=== PATIENT | male | born 1960 | race Caucasian/White ===

== ENCOUNTER 2022-04-08 11:28 | Emergency (ER) | payer OTHER ==
--- NOTE | 2022-04-08 11:35 | ERPHSYRPT ---
- History of Present Illness Time Seen by Provider: 04/08/22 11:34 Historian: patient Exam Limitations: no limitations Physician History: This is a 62-year-old white male who has a history of arthritis in both his shoulders and has had in the last couple years, intermittent chest wall discomfort which she was told was due to arthritis. In the last couple weeks he has had intermittent worsening of substernal, central chest pressure that radiates into his back. He felt this was due to worsening arthritis but in the last couple weeks and more so today he felt as though he was going to pass out and there was associated numbness in his fingers and around his mouth. He has never been diagnosed with a cardiac issue or coronary artery disease. He has never had a stroke in the past. He is not short of breath. He has no abdominal pain. He has no nausea vomiting or diarrhea symptoms. Timing/Duration: week(s) (Present for the last couple weeks), worse Activities at Onset: none Quality: pressure Location: substernal, central Chest Pain Radiation: back Severity of Pain-Max: mild Severity of Pain-Current: mild Modifying Factors: Improves With: nothing Associated Symptoms: other ([place] lightheaded as if he was going to pass out but did not pass out) Prior Chest Pain/Cardiac Workup: no prior chest pain, no prior cardiac workup Nitro Today/Relief: no nitro taken today Aspirin Treatment Today: no aspirin today Allergies/Adverse Reactions: acetaminophen [From Darvocet-N] Allergy (Verified 04/08/22 11:31) bee venom protein (honey bee) Allergy (Verified 04/08/22 11:31) propoxyphene [From Darvon] Allergy (Verified 04/08/22 11:31) Travel Risk - International Travel Have you traveled outside of the country in past 3 weeks: No - Coronavirus Screening Are you exhibiting any of the following symptoms?: No Close contact with a COVID-19 positive Pt in past 14-21 Days: No - Review of Systems Constitutional: No Symptoms Eyes: No Symptoms Ears, Nose, & Throat: No Symptoms Respiratory: No Symptoms Cardiac: Chest Pain (Described as a pressure radiating into his back) Abdominal/Gastrointestinal: No Symptoms Genitourinary Symptoms: No Symptoms Musculoskeletal: No Symptoms Skin: No Symptoms Neurological: Parasthesia (Around his mouth and fingertips), Other (Lightheaded) Psychological: Anxiety Endocrine: No Symptoms Hematologic/Lymphatic: No Symptoms Immunological/Allergic: No Symptoms All Other Systems: Reviewed and Negative - Past Medical History Pertinent Past Medical History: Yes - Past Surgical History Past Surgical History: Yes - Nursing Vital Signs Nursing Vital Signs: Initial Vital Signs Temperature 97.2 F 04/08/22 11:33 Pulse Rate 94 H 04/08/22 11:33 Respiratory Rate 18 04/08/22 11:33 Blood Pressure 164/87 04/08/22 11:33 O2 Sat by Pulse Oximetry 100 04/08/22 11:33 Pain Scale Pain Intensity 4 - Physical Exam General Appearance: no apparent distress, alert, anxiety Eye Exam: PERRL/EOMI, eyes nml inspection Ears, Nose, Throat Exam: normal ENT inspection, moist mucous membranes Neck Exam: normal inspection, non-tender, supple, full range of motion Respiratory Exam: normal breath sounds, lungs clear, airway intact, No chest tenderness, No respiratory distress Cardiovascular Exam: regular rate/rhythm, normal heart sounds, normal peripheral pulses Gastrointestinal/Abdomen Exam: soft, normal bowel sounds, No tenderness Rectal Exam: not done Extremity Exam: normal inspection, normal range of motion, pelvis stable Neurologic Exam: alert, oriented x 3, cooperative, 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 No comparison twelve-lead EKG available) Ordered Tests: Active Orders 24 hr Category Date Time Status EKG-ER Only STAT Care 04/08/22 11:59 Active IV Insertion STAT Care 04/08/22 11:59 Active Pulse Oximetry (ED) STAT Care 04/08/22 11:59 Active CHEST 1 VIEW (PORTABLE) Stat Exams 04/08/22 13:34 Taken HEAD WITHOUT CONTRAST [CT] Stat Exams 04/08/22 12:00 Completed CBC W DIFF Stat Lab 04/08/22 12:45 Completed CMP Stat Lab 04/08/22 12:45 Completed D-DIMER QUANTITATIVE Stat Lab 04/08/22 12:45 Completed NT PRO BNP Stat Lab 04/08/22 12:45 Completed TROPONIN Q4H Lab 04/08/22 12:45 Completed TROPONIN Q4H Lab 04/08/22 16:00 Ordered TROPONIN Q4H Lab 04/08/22 20:00 Ordered Medication Summary Discontinued Medications Generic Name Dose Route Start Last Admin Trade Name Freq PRN Reason Stop Dose Admin Aspirin 324 mg 04/08/22 11:59 04/08/22 12:04 Aspirin 81 Mg Tab.Chew PO 04/08/22 12:00 324 mg STAT ONE Administration Aspirin Confirm 04/08/22 12:04 Aspirin 81 Mg Tab.Chew Administered 04/08/22 12:05 Dose 324 mg .ROUTE .[employer] ONE Lab/Rad Data: Laboratory Result Diagrams 04/08/22 12:45 04/08/22 12:45 Laboratory Results 04/08/22 04/08/22 04/08/22 Range/Units 12:45 12:45 12:45 WBC (4.0-10.5) x10^3/uL RBC (4.1-5.6) x10^6/uL Hgb (12.5-18.0) g/dL Hct (42-50) % MCV (78-100) fL MCH (26-32) pg MCHC (32-36) g/dL RDW (11.5-14.0) % Plt Count (150-450) x10^3/uL MPV (7.5-11.0) fL Gran % (36.0-66.0) % Immature Gran % (Auto) (0.00-0.4) % Nucleat RBC Rel Count (0.00-0.1) % Eos # (Auto) (0-0.5) x10^3/uL Immature Gran # (Auto) (0.00-0.03) x10^3u/L Absolute Lymphs (auto) (1.0-4.6) x10^3/uL Absolute Monos (auto) (0.0-1.3) x10^3/uL Absolute Nucleated RBC (0.00-0.01) x10^3u/L Lymphocytes % (24.0-44.0) % Monocytes % (0.0-12.0) % Eosinophils % (0.00-5.0) % Basophils % (0.0-0.4) % Absolute Granulocytes (1.4-6.9) x10^3/uL Basophils # (0-0.4) x10^3/uL D-Dimer < 0.19 (0.0-0.50) mg/L Sodium 139 (137-145) mmol/L Potassium 4.3 (3.5-5.1) mmol/L Chloride 104 (98-107) mmol/L Carbon Dioxide 28 (22-30) mmol/L Anion Gap 11.4 (5-15) MEQ/L BUN 11 (9-20) mg/dL Creatinine 0.86 (0.66-1.25) mg/dL Estimated GFR > 60.0 ML/MIN Glucose 109 H (74-106) mg/dL Calcium 9.0 (8.4-10.2) mg/dL Total Bilirubin 0.60 (0.2-1.3) mg/dL AST 23 (17-59) U/L ALT 25 (0-50) U/L Alkaline Phosphatase 71 (38-126) U/L Troponin I < 0.012 (0.000-0.034) ng/mL NT-Pro-B Natriuret Pep 36.9 (0-900) pg/mL Serum Total Protein 6.9 (6.3-8.2) g/dL Albumin 4.4 (3.5-5.0) g/dL 04/08/22 Range/Units 12:45 WBC 7.9 (4.0-10.5) x10^3/uL RBC 4.66 (4.1-5.6) x10^6/uL Hgb 13.9 (12.5-18.0) g/dL Hct 42.5 (42-50) % MCV 91.2 (78-100) fL MCH 29.8 (26-32) pg MCHC 32.7 (32-36) g/dL RDW 12.4 (11.5-14.0) % Plt Count 256 (150-450) x10^3/uL MPV 9.0 (7.5-11.0) fL Gran % 63.8 (36.0-66.0) % Immature Gran % (Auto) 0.5 H (0.00-0.4) % Nucleat RBC Rel Count 0.0 (0.00-0.1) % Eos # (Auto) 0.20 (0-0.5) x10^3/uL Immature Gran # (Auto) 0.04 H (0.00-0.03) x10^3u/L Absolute Lymphs (auto) 1.82 (1.0-4.6) x10^3/uL Absolute Monos (auto) 0.73 (0.0-1.3) x10^3/uL Absolute Nucleated RBC 0.00 (0.00-0.01) x10^3u/L Lymphocytes % 23.0 L (24.0-44.0) % Monocytes % 9.2 (0.0-12.0) % Eosinophils % 2.5 (0.00-5.0) % Basophils % 1.0 (0.0-0.4) % Absolute Granulocytes 5.06 (1.4-6.9) x10^3/uL Basophils # 0.08 (0-0.4) x10^3/uL D-Dimer (0.0-0.50) mg/L Sodium (137-145) mmol/L Potassium (3.5-5.1) mmol/L Chloride (98-107) mmol/L Carbon Dioxide (22-30) mmol/L Anion Gap (5-15) MEQ/L BUN (9-20) mg/dL Creatinine (0.66-1.25) mg/dL Estimated GFR ML/MIN Glucose (74-106) mg/dL Calcium (8.4-10.2) mg/dL Total Bilirubin (0.2-1.3) mg/dL AST (17-59) U/L ALT (0-50) U/L Alkaline Phosphatase (38-126) U/L Troponin I (0.000-0.034) ng/mL NT-Pro-B Natriuret Pep (0-900) pg/mL Serum Total Protein (6.3-8.2) g/dL Albumin (3.5-5.0) g/dL - Progress Progress: improved, re-examined Air Movement: good Progress Note: 04/08/22 13:52 Chest x-ray shows no acute cardiopulmonary process. Blood Culture(s) Obtained: No Antibiotics given: No Counseled pt/family regarding: lab results, diagnosis, need for follow-up, rad results - Departure Departure Disposition: Home Clinical Impression: Non-cardiac chest pain Condition: Stable Critical Care Time: No Referrals: [facility]OSP[facility],'S [Primary Care Provider] - Follow up/PCP as directed Additional Instructions: Take all your medication as prescribed. Follow-up with your primary care physician and a magnetic prospector by phone later today to make an appointment for further evaluation and management.
[2022-04-08] MEDS ORDERED: BABY ASPIRIN 81 MG CHEW PO ONE (11:59)
[2022-04-08] MEDS ORDERED: BABY ASPIRIN 81 MG CHEW ONE (12:04)
--- NOTE | 2022-04-08 12:29 | XRAY ---
Indication: Dizziness and near syncope. Multiple contiguous axial images obtained through the head without contrast. Comparison: None Normal appearing brain parenchyma, ventricles, and bony calvarium for patient's age. Visualized paranasal sinuses and mastoid air cells are clear. Impression: Normal CT head without contrast exam.
[2022-04-08 12:57] LABS: Absolute Neutrophil Ct (ANC) 5.06 x10^3/uL (1.4-6.9); Basophil (Absolute #) 0.08 x10^3/uL (0-0.4); Eosinophil % 2.5 % (0.00-5.0); Hematocrit 42.5 % (42-50); Hemoglobin 13.9 g/dL (12.5-18.0); Lymphocyte (Absolute #) 1.82 x10^3/uL (1.0-4.6); Mean Cell Volume 91.2 fL (78-100); Mean Corpuscular Hemoglobin 29.8 pg (26-32); Mean Corpuscular Hgb Concent. 32.7 g/dL (32-36); Monocyte (Absolute #) 0.73 x10^3/uL (0.0-1.3); Monocytes % 9.2 % (0.0-12.0); Neutrophil % 63.8 % (36.0-66.0); Platelet Count 256 x10^3/uL (150-450); Red Blood Count 4.66 x10^6/uL (4.1-5.6); Red Cell Distribution Width 12.4 % (11.5-14.0); White Blood Count 7.9 x10^3/uL (4.0-10.5)
[2022-04-08 13:11] LABS: ALBUMIN 4.4 g/dL (3.5-5.0); ALKALINE PHOSPHATASE 71 U/L (38-126); ANION GAP 11.4 MEQ/L (5-15); BLOOD UREA NITROGEN 11 mg/dL (9-20); CHLORIDE 104 mmol/L (98-107); Carbon Dioxide 28 mmol/L (22-30); Creatinine 1 0.86 mg/dL (0.66-1.25); EST GLOMERULAR FILTRATION RATE > 60.0 ML/MIN; Glucose 109 mg/dL (74-106); NT PRO BNP 36.9 pg/mL (0-900); Potassium 4.3 mmol/L (3.5-5.1); SGOT/AST 23 U/L (17-59); SGPT/ALT 25 U/L (0-50); SODIUM 139 mmol/L (137-145); Total Protein 6.9 g/dL (6.3-8.2)
[2022-04-08 13:41] VITALS: BP 160/80
--- NOTE | 2022-04-08 14:05 | XRAY ---
Indication: Chest pain. Comparison: None Portable chest demonstrates normal heart and lungs with a few incidental tiny calcified granulomas. Bony thorax intact with mild degenerative changes and partially visualized cervical fusion hardware.
[2022-04-08 14:06] VITALS: PULSE 72; O2SAT 96
== END 2022-04-08 14:10 | disposition home or self-care (01) ==
LOC: ED 11:28
DX: R07.89 Other chest pain (principal); R20.2 Paresthesia of skin; R42 Dizziness and giddiness
CPT/HCPCS: 36000; 36415; 70450; 71045; 80053; 83880; 84484; 85025; 85379; 93005; 94760; 99284; A9270-GY